=== PATIENT | male | born 1960 | race Two or more races ===

== ENCOUNTER 2018-01-21 07:11 | Outpatient (CLI) | payer OTHER | END 2018-01-21 07:27 | disposition home or self-care (01) | LOC: RAD 07:11 | DX: N20.0 Calculus of kidney (principal) ==

== ENCOUNTER → 2018-01-25 13:19 | Outpatient (CLI) | payer OTHER | END | disposition home or self-care (01) | LOC: EKG 13:19 | DX: I10 Essential (primary) hypertension (principal) ==

== ENCOUNTER → 2018-01-25 18:13 | Outpatient (CLI) | payer OTHER | END | disposition home or self-care (01) | LOC: LAB 18:13 | DX: N30.00 Acute cystitis without hematuria (principal) ==

== ENCOUNTER 2018-01-27 05:26 | Inpatient (IN) | payer OTHER ==
[~2018-01-27] VITALS: Ht 167.6 cm; Wt 72.6 kg
== END 2018-01-29 14:28 | disposition home or self-care (01) | DRG 661 ==
LOC: O/R 05:26 → SURH 05:26 → RECOVERY 07:00 → SURH 11:51
PROVIDERS: Urology
PROC: BT1FZZZ Fluoroscopy of Left Kidney, Ureter and Bladder (ICD-10-PCS; 2018-01-27)
PROC: 0TC18ZZ Extirpation of Matter from Left Kidney, Via Natural or Artificial Opening Endoscopic (ICD-10-PCS; principal; 2018-01-27 07:00)
PROC: BT12YZZ Fluoroscopy of Left Kidney using Other Contrast (ICD-10-PCS; 2018-01-29)
DX: N20.0 Calculus of kidney (principal)

== ENCOUNTER 2018-02-04 07:34 | Outpatient (CLI) | payer OTHER | END 2018-02-05 10:03 | disposition home or self-care (01) | LOC: RAD 07:34 | DX: N20.0 Calculus of kidney (principal) ==